=== PATIENT | male | born 1935 | race Caucasian/White ===

== ENCOUNTER 2018-04-04 18:41 | Emergency (ER) | payer OTHER ==
[~2018-04-04] VITALS: Ht 185.4 cm; Wt 97.2 kg
[2018-04-04] MEDS ORDERED: KEFLEX500 MG PO (19:50)
[2018-04-04 20:16] VITALS: BP 139/77
== END 2018-04-04 20:10 | disposition home or self-care (01) ==
LOC: TRA 18:41
DX: S91.311A Laceration without foreign body, right foot, initial encounter (principal); W26.0XXA Contact with knife, initial encounter; Y93.G3 Activity, cooking and baking; Y92.000 Kitchen of unspecified non-institutional (private) residence as the place of occurrence of the external cause; Z23 Encounter for immunization; E11.9 Type 2 diabetes mellitus without complications; Z79.82 Long term (current) use of aspirin; Z87.891 Personal history of nicotine dependence; Z85.038 Personal history of other malignant neoplasm of large intestine; Z90.49 Acquired absence of other specified parts of digestive tract; Z91.030 Bee allergy status
CPT/HCPCS: 99281; 99284; J0690

== ENCOUNTER 2018-04-20 14:10 | Inpatient (IN) | payer OTHER ==
[~2018-04-20] VITALS: Ht 185.4 cm; Wt 92.9 kg
[~2018-04-20 14:10] MED LIST: KEFLEX500 MG PO
[2018-04-20 14:52] LABS: HEMATOCRIT 35.4 % (38.0-50.0); HEMOGLOBIN 11.5 G/DL (12.5-16.6); MCH 32.4 PG (29.0-34.0); MCHC 32.5 G/DL (30.0-36.0); MCV 99.7 FL (86-99); NRBC (%) 0.1 /100 WBC (0-0); PLATELET COUNT 237 K/uL (156-360); RBC DIS.WIDTH-CV 14.8 % (11.8-14.6); RED BLOOD COUNT 3.55 M/uL (4.00-5.50); WHITE BLOOD COUNT 22.6 K/uL (4.1-10.2)
[2018-04-20 14:54] LABS: ALBUMIN 3.9 g/dL (3.2-4.8); CHLORIDE 105 mEq/L (99-109); POTASSIUM 5.5 mEq/L (3.7-5.4); SODIUM 135 mEq/L (136-147)
[2018-04-20 14:55] LABS: INTER. NORMALIZED RATIO 1.1
[2018-04-20 14:56] LABS: GLUCOSE 338 mg/dL (70-99)
[2018-04-20 14:57] LABS: TOTAL PROTEIN 7.8 g/dL (6.4-8.3)
[2018-04-20 14:58] LABS: PTT 21.9 SEC (25-37); TOTAL BILIRUBIN 0.6 mg/dL (0.0-1.0)
[2018-04-20 15:00] LABS: ALKALINE PHOSPHATASE 74 IU/L (3-129); CREATININE 2.3 mg/dL (0.6-1.3); GFR ESTIMATE (CALCULATED) 29 mL/min/ (58.99-99999)
[2018-04-20 15:01] LABS: UREA NITROGEN (BUN) 42 mg/dL (9-23)
[2018-04-20 15:02] LABS: AST (GOT) 45 IU/L (2-34)
[2018-04-20 15:03] LABS: ALT (GPT) 43 IU/L (3-49); LIPASE 46 U/L (1.0-51.0)
[2018-04-20 15:06] LABS: TROP-I INTERPRETATION NEGATIVE; TROPONIN-I < 0.01 ng/mL (0.0-0.30)
[2018-04-20 17:01] VITALS: BP 131/63
[2018-04-20 17:16] VITALS: BP 145/63
[2018-04-20 18:00] LABS: COMMENTS - BLOOD GASES C+; DEVICE VENT; FI02 70 %; MECHANICAL RATE 18 resp/min; MODE AC; SITE ALINE; TOTAL RESP RATE 18 resp/min
[2018-04-20 18:01] LABS: BASE EXCESS -6.3 mEq/L (-3 to +3); BICARBONATE 20.6 mEq/L (22-26); CARBOXY HGB 1.2 % (0-5); METHEMOGLOBIN 1.4 % (0-1.5); O2 SATURATION (CALCULATED) 95.4 % (95-99); PCO2 46 mm Hg (35-45); PEEP 5 CM/H20; PO2 105 mm Hg (80-100); TIDAL VOLUME 550 ML; pH 7.26 (7.35-7.45)
[2018-04-20 18:16] LABS: BASOPHIL (%) 0.2 % (0-1); EOSINOPHIL (%) 0.4 % (0-5); EOSINOPHIL COUNT 0.1 K/uL (0-0.3); HEMATOCRIT 32.7 % (38.0-50.0); HEMOGLOBIN 11.1 G/DL (12.5-16.6); IMMATURE GRANULOCYTE (%) 0.8 % (0.0-0.7); LYMPHOCYTE (%) 25.3 % (15-42); LYMPHOCYTE COUNT 4.2 K/uL (1.0-2.8); MCH 32.6 PG (29.0-34.0); MCHC 33.9 G/DL (30.0-36.0); MCV 96.2 FL (86-99); MONOCYTE (%) 9.1 % (3-12); MONOCYTE COUNT 1.5 K/uL (0-0.8); NEUTROPHIL (%) 64.2 % (45-76); NEUTROPHIL COUNT 10.5 K/uL (1.8-6.4); PLATELET COUNT 227 K/uL (156-360); RBC DIS.WIDTH-CV 14.6 % (11.8-14.6); WHITE BLOOD COUNT 16.4 K/uL (4.1-10.2)
[2018-04-20 18:28] LABS: CHLORIDE 107 mEq/L (99-109); MAGNESIUM 2.1 mg/dL (1.3-2.7); POTASSIUM 5.1 mEq/L (3.7-5.4); SODIUM 135 mEq/L (136-147)
[2018-04-20 18:30] LABS: GLUCOSE 370 mg/dL (70-99)
[2018-04-20 18:33] LABS: PHOSPHORUS 3.9 mg/dL (2.5-4.9)
[2018-04-20 18:34] LABS: CREATININE 2.1 mg/dL (0.6-1.3); GFR ESTIMATE (CALCULATED) 32 mL/min/ (58.99-99999); UREA NITROGEN (BUN) 44 mg/dL (9-23)
[2018-04-20 18:36] LABS: INTER. NORMALIZED RATIO 1.1
[2018-04-20 18:38] LABS: TROP-I INTERPRETATION INDETERMINATE; TROPONIN-I 0.33 ng/mL (0.0-0.30)
[2018-04-20 20:00] VITALS: BP 177/91
[2018-04-21] VITALS (9 sets, daily range): BP systolic 76–168; BP diastolic 42–104
[2018-04-21 00:08] LABS: CARBOXY HGB 1.4 % (0-5); METHEMOGLOBIN 1.1 % (0-1.5); PCO2 40 mm Hg (35-45); PO2 116 mm Hg (80-100); pH 7.32 (7.35-7.45)
[2018-04-21 00:09] LABS: BASE EXCESS -5.1 mEq/L (-3 to +3); BICARBONATE 20.6 mEq/L (22-26); COMMENTS - BLOOD GASES C+; DEVICE VENT; FI02 60 %; MECHANICAL RATE 22 resp/min; MODE ACVC; SITE A-LINE
[2018-04-21 00:10] LABS: PEEP 5 CM/H20; TIDAL VOLUME 550 ML; TOTAL RESP RATE 22 resp/min
[2018-04-21 00:40] LABS: BASOPHIL (%) 0.1 % (0-1); EOSINOPHIL (%) 0 % (0-5); HEMATOCRIT 31.9 % (38.0-50.0); HEMOGLOBIN 10.9 G/DL (12.5-16.6); IMMATURE GRANULOCYTE (%) 0.4 % (0.0-0.7); LYMPHOCYTE COUNT 2.7 K/uL (1.0-2.8); MCH 32.5 PG (29.0-34.0); MCHC 34.2 G/DL (30.0-36.0); MCV 95.2 FL (86-99); MONOCYTE (%) 4.9 % (3-12); MONOCYTE COUNT 0.7 K/uL (0-0.8); NEUTROPHIL (%) 75.6 % (45-76); NEUTROPHIL COUNT 10.7 K/uL (1.8-6.4); PLATELET COUNT 201 K/uL (156-360); RBC DIS.WIDTH-CV 14.4 % (11.8-14.6); RBC DIS.WIDTH-SD 50.5 % (39-53); RED BLOOD COUNT 3.35 M/uL (4.00-5.50); WHITE BLOOD COUNT 14.2 K/uL (4.1-10.2)
[2018-04-21 00:45] LABS: INTER. NORMALIZED RATIO 1.1
[2018-04-21 00:49] LABS: CHLORIDE 106 mEq/L (99-109); SODIUM 133 mEq/L (136-147)
[2018-04-21 00:50] LABS: MAGNESIUM 2.2 mg/dL (1.3-2.7); POTASSIUM 6.6 mEq/L (3.7-5.4)
[2018-04-21 00:51] LABS: GLUCOSE 466 mg/dL (70-99)
[2018-04-21 00:54] LABS: PHOSPHORUS 3.8 mg/dL (2.5-4.9)
[2018-04-21 00:55] LABS: CREATININE 2.2 mg/dL (0.6-1.3); GFR ESTIMATE (CALCULATED) 31 mL/min/ (58.99-99999)
[2018-04-21 00:56] LABS: UREA NITROGEN (BUN) 50 mg/dL (9-23)
[2018-04-21 01:05] LABS: TROP-I INTERPRETATION POSITIVE
[2018-04-21 01:06] LABS: TROPONIN-I 1.76 ng/mL (0.0-0.30)
[2018-04-21 04:20] LABS: BASOPHIL (%) 0.1 % (0-1); EOSINOPHIL (%) 0.1 % (0-5); HEMATOCRIT 29.8 % (38.0-50.0); HEMOGLOBIN 10.2 G/DL (12.5-16.6); IMMATURE GRANULOCYTE (%) 0.6 % (0.0-0.7); LYMPHOCYTE (%) 22.8 % (15-42); MCH 32.3 PG (29.0-34.0); MCHC 34.2 G/DL (30.0-36.0); MCV 94.3 FL (86-99); MONOCYTE (%) 7.5 % (3-12); NEUTROPHIL (%) 68.9 % (45-76); NEUTROPHIL COUNT 9.1 K/uL (1.8-6.4); PLATELET COUNT 191 K/uL (156-360); RBC DIS.WIDTH-CV 14.6 % (11.8-14.6); RBC DIS.WIDTH-SD 50.2 % (39-53); RED BLOOD COUNT 3.16 M/uL (4.00-5.50); WHITE BLOOD COUNT 13.1 K/uL (4.1-10.2)
[2018-04-21 04:28] LABS: INTER. NORMALIZED RATIO 1.1
[2018-04-21 04:33] LABS: CHLORIDE 109 mEq/L (99-109); MAGNESIUM 2.2 mg/dL (1.3-2.7); POTASSIUM 4.8 mEq/L (3.7-5.4); SODIUM 139 mEq/L (136-147)
[2018-04-21 04:35] LABS: GLUCOSE 174 mg/dL (70-99)
[2018-04-21 04:39] LABS: CREATININE 1.9 mg/dL (0.6-1.3); GFR ESTIMATE (CALCULATED) 36 mL/min/ (58.99-99999); UREA NITROGEN (BUN) 50 mg/dL (9-23)
[2018-04-21 04:48] LABS: TROP-I INTERPRETATION POSITIVE
[2018-04-21 04:52] LABS: TROPONIN-I 5.46 ng/mL (0.0-0.30)
[2018-04-21 05:36] LABS: BICARBONATE 23.9 mEq/L (22-26); CARBOXY HGB 1.7 % (0-5); METHEMOGLOBIN 1.1 % (0-1.5); O2 SATURATION (CALCULATED) 97.2 % (95-99); PCO2 52 mm Hg (35-45); PO2 84 mm Hg (80-100); pH 7.27 (7.35-7.45)
[2018-04-21 05:37] LABS: BASE EXCESS -3.4 mEq/L (-3 to +3); DEVICE VENT; FI02 60 %; MECHANICAL RATE 22 resp/min; MODE ACVC; PEEP 5 CM/H20; SITE A-LINE; TIDAL VOLUME 550 ML; TOTAL RESP RATE 22 resp/min
[2018-04-21 08:24] LABS: CHLORIDE 109 MEQ/L (99-109); POTASSIUM 4.5 MEQ/L (3.7-5.4); SODIUM 141 MEQ/L (136-147)
[2018-04-21 08:30] LABS: CREATININE 1.7 MG/DL (0.6-1.3); GFR ESTIMATE (CALCULATED) 41 mL/min/ (58.99-99999); PHOSPHORUS 4.2 mg/dL (2.5-4.9); UREA NITROGEN (BUN) 46 mg/dL (9-23)
[2018-04-21 08:31] LABS: GLUCOSE 74 mg/dL (70-99)
[2018-04-21 09:32] LABS: ABS NEUTROPHIL COUNT 8.7; ANISOCYTOSIS 1+; BAND NEUTROPHILS 7.6 % (0-8.0); BASOPHILS 0.5 %; EOSINOPHIL ABS CT 0.4; EOSINOPHILS 1.8 % (0-5.0); MACROCYTES 1+; METAMYELOCYTES 0.9 %; MONOCYTES 4.9 % (0-9.0); OTHER 0.4; PLAT.SUFFICIENCY ADEQUATE; SEG.NEUTROPHILS 30.8 % (46.0-76.0); SMUDGE CELLS 4.5
[2018-04-21 10:28] LABS: HEMOGLOBIN A1c (GLYCOHEMOGLOB) 6.2 % (Below 5.7)
[2018-04-21 12:12] LABS: BASOPHIL (%) 0.2 % (0-1); EOSINOPHIL (%) 0.1 % (0-5); HEMATOCRIT 32.7 % (38.0-50.0); HEMOGLOBIN 11.3 G/DL (12.5-16.6); IMMATURE GRANULOCYTE (%) 0.6 % (0.0-0.7); LYMPHOCYTE (%) 27.4 % (15-42); LYMPHOCYTE COUNT 4.9 K/uL (1.0-2.8); MCH 32.6 PG (29.0-34.0); MCHC 34.6 G/DL (30.0-36.0); MCV 94.2 FL (86-99); MONOCYTE (%) 8.4 % (3-12); MONOCYTE COUNT 1.5 K/uL (0-0.8); NEUTROPHIL (%) 63.3 % (45-76); NEUTROPHIL COUNT 11.4 K/uL (1.8-6.4); PLATELET COUNT 220 K/uL (156-360); RBC DIS.WIDTH-CV 14.8 % (11.8-14.6); RBC DIS.WIDTH-SD 50.8 % (39-53); RED BLOOD COUNT 3.47 M/uL (4.00-5.50)
[2018-04-21 12:18] LABS: INTER. NORMALIZED RATIO 1.2
[2018-04-21 12:23] LABS: COMMENTS - BLOOD GASES NAC+; DEVICE 840; FI02 60 %; MECHANICAL RATE 25 resp/min; MODE AC; PCO2 38 mm Hg (35-45); PEEP 5 CM/H20; PO2 119 mm Hg (80-100); SITE ALINE; TIDAL VOLUME 550 ML; TOTAL RESP RATE 25 resp/min; pH 7.37 (7.35-7.45)
[2018-04-21 12:23] LABS: CHLORIDE 110 mEq/L (99-109); POTASSIUM 4.8 mEq/L (3.7-5.4); SODIUM 143 mEq/L (136-147)
[2018-04-21 12:24] LABS: BICARBONATE 22 mEq/L (22-26); CARBOXY HGB 1.4 % (0-5); METHEMOGLOBIN 1 % (0-1.5)
[2018-04-21 12:28] LABS: PHOSPHORUS 3.2 mg/dL (2.5-4.9)
[2018-04-21 12:29] LABS: CREATININE 1.7 mg/dL (0.6-1.3); GFR ESTIMATE (CALCULATED) 41 mL/min/ (58.99-99999)
[2018-04-21 12:30] LABS: UREA NITROGEN (BUN) 45 mg/dL (9-23)
[2018-04-21 12:34] LABS: TROP-I INTERPRETATION POSITIVE
[2018-04-21 12:54] LABS: GLUCOSE 183 mg/dL (70-99)
[2018-04-21 12:59] LABS: TROPONIN-I 7.21 ng/mL (0.0-0.30)
[2018-04-21 16:12] LABS: CHLORIDE 111 mEq/L (99-109); POTASSIUM 4.8 mEq/L (3.7-5.4); SODIUM 141 mEq/L (136-147)
[2018-04-21 16:14] LABS: GLUCOSE 171 mg/dL (70-99)
[2018-04-21 16:17] LABS: PHOSPHORUS 3.1 mg/dL (2.5-4.9)
[2018-04-21 16:18] LABS: CREATININE 1.6 mg/dL (0.6-1.3); GFR ESTIMATE (CALCULATED) 44 mL/min/ (58.99-99999)
[2018-04-21 16:19] LABS: UREA NITROGEN (BUN) 42 mg/dL (9-23)
[2018-04-21 18:15] LABS: COMMENTS - BLOOD GASES C+; DEVICE VENT; FI02 60 %; MECHANICAL RATE 25 resp/min; MODE AC; PEEP 5 CM/H20; SITE ALINE; TIDAL VOLUME 550 ML; TOTAL RESP RATE 25 resp/min
[2018-04-21 18:16] LABS: BICARBONATE 20.2 mEq/L (22-26); CARBOXY HGB 1.4 % (0-5); METHEMOGLOBIN 1.1 % (0-1.5); PCO2 29 mm Hg (35-45); PO2 203 mm Hg (80-100); pH 7.45 (7.35-7.45)
[2018-04-21 18:18] LABS: BASOPHIL (%) 0.2 % (0-1); EOSINOPHIL (%) 0.1 % (0-5); HEMATOCRIT 29.7 % (38.0-50.0); HEMOGLOBIN 10.2 G/DL (12.5-16.6); IMMATURE GRANULOCYTE (%) 0.6 % (0.0-0.7); LYMPHOCYTE (%) 30.9 % (15-42); MCH 32.5 PG (29.0-34.0); MCHC 34.3 G/DL (30.0-36.0); MCV 94.6 FL (86-99); MONOCYTE (%) 7.8 % (3-12); MONOCYTE COUNT 1.5 K/uL (0-0.8); NEUTROPHIL (%) 60.4 % (45-76); NEUTROPHIL COUNT 11.6 K/uL (1.8-6.4); PLATELET COUNT 210 K/uL (156-360); RBC DIS.WIDTH-CV 14.9 % (11.8-14.6); RBC DIS.WIDTH-SD 51.3 % (39-53); RED BLOOD COUNT 3.14 M/uL (4.00-5.50); WHITE BLOOD COUNT 19.2 K/uL (4.1-10.2)
[2018-04-21 18:26] LABS: INTER. NORMALIZED RATIO 1.2
[2018-04-21 18:28] LABS: CHLORIDE 111 mEq/L (99-109); POTASSIUM 4.5 mEq/L (3.7-5.4); SODIUM 141 mEq/L (136-147)
[2018-04-21 18:29] LABS: MAGNESIUM 1.8 mg/dL (1.3-2.7)
[2018-04-21 18:30] LABS: GLUCOSE 183 mg/dL (70-99)
[2018-04-21 18:33] LABS: CHLORIDE 113 mEq/L (99-109); PHOSPHORUS 2.6 mg/dL (2.5-4.9); POTASSIUM 4.5 mEq/L (3.7-5.4); SODIUM 141 mEq/L (136-147)
[2018-04-21 18:34] LABS: CREATININE 1.6 mg/dL (0.6-1.3); GFR ESTIMATE (CALCULATED) 44 mL/min/ (58.99-99999); GLUCOSE 185 mg/dL (70-99)
[2018-04-21 18:35] LABS: UREA NITROGEN (BUN) 41 mg/dL (9-23)
[2018-04-21 18:38] LABS: CREATININE 1.6 mg/dL (0.6-1.3); GFR ESTIMATE (CALCULATED) 44 mL/min/ (58.99-99999); PHOSPHORUS 2.6 mg/dL (2.5-4.9)
[2018-04-21 18:39] LABS: UREA NITROGEN (BUN) 41 mg/dL (9-23)
[2018-04-21 18:40] LABS: TROP-I INTERPRETATION POSITIVE
[2018-04-21 18:42] LABS: TROPONIN-I 6.94 ng/mL (0.0-0.30)
[2018-04-22] VITALS (8 sets, daily range): BP systolic 95–167; BP diastolic 51–91
[2018-04-22 00:32] LABS: BASOPHIL (%) 0.2 % (0-1); EOSINOPHIL (%) 0.1 % (0-5); HEMATOCRIT 30.1 % (38.0-50.0); HEMOGLOBIN 10.2 G/DL (12.5-16.6); IMMATURE GRANULOCYTE (%) 0.5 % (0.0-0.7); LYMPHOCYTE (%) 38.1 % (15-42); LYMPHOCYTE COUNT 6.4 K/uL (1.0-2.8); MCH 32.9 PG (29.0-34.0); MCHC 33.9 G/DL (30.0-36.0); MCV 97.1 FL (86-99); MONOCYTE (%) 8.5 % (3-12); MONOCYTE COUNT 1.4 K/uL (0-0.8); NEUTROPHIL (%) 52.6 % (45-76); NEUTROPHIL COUNT 8.8 K/uL (1.8-6.4); PLATELET COUNT 199 K/uL (156-360); RBC DIS.WIDTH-SD 52.9 % (39-53); WHITE BLOOD COUNT 16.8 K/uL (4.1-10.2)
[2018-04-22 00:37] LABS: INTER. NORMALIZED RATIO 1.3
[2018-04-22 00:41] LABS: CHLORIDE 112 mEq/L (99-109); MAGNESIUM 1.8 mg/dL (1.3-2.7); POTASSIUM 4.5 mEq/L (3.7-5.4); SODIUM 141 mEq/L (136-147)
[2018-04-22 00:43] LABS: GLUCOSE 209 mg/dL (70-99)
[2018-04-22 00:46] LABS: PHOSPHORUS 3.1 mg/dL (2.5-4.9)
[2018-04-22 00:47] LABS: CREATININE 1.8 mg/dL (0.6-1.3); GFR ESTIMATE (CALCULATED) 39 mL/min/ (58.99-99999)
[2018-04-22 00:48] LABS: UREA NITROGEN (BUN) 39 mg/dL (9-23)
[2018-04-22 00:53] LABS: TROP-I INTERPRETATION POSITIVE
[2018-04-22 00:57] LABS: TROPONIN-I 5.46 ng/mL (0.0-0.30)
[2018-04-22 05:44] LABS: BASOPHIL (%) 0.3 % (0-1); BASOPHIL COUNT 0.1 K/uL (0-0.1); EOSINOPHIL (%) 0.1 % (0-5); HEMATOCRIT 28.5 % (38.0-50.0); HEMOGLOBIN 9.5 G/DL (12.5-16.6); IMMATURE GRANULOCYTE (%) 0.3 % (0.0-0.7); LYMPHOCYTE (%) 41.5 % (15-42); LYMPHOCYTE COUNT 6.5 K/uL (1.0-2.8); MCH 31.9 PG (29.0-34.0); MCHC 33.3 G/DL (30.0-36.0); MCV 95.6 FL (86-99); MONOCYTE (%) 7.7 % (3-12); MONOCYTE COUNT 1.2 K/uL (0-0.8); NEUTROPHIL (%) 50.1 % (45-76); NEUTROPHIL COUNT 7.9 K/uL (1.8-6.4); PLATELET COUNT 211 K/uL (156-360); RBC DIS.WIDTH-CV 15.1 % (11.8-14.6); RED BLOOD COUNT 2.98 M/uL (4.00-5.50); WHITE BLOOD COUNT 15.8 K/uL (4.1-10.2)
[2018-04-22 06:26] LABS: INTER. NORMALIZED RATIO 1.3
[2018-04-22 06:51] LABS: CHLORIDE 111 MEQ/L (99-109); CREATININE 1.6 MG/DL (0.6-1.3); GFR ESTIMATE (CALCULATED) 44 mL/min/ (58.99-99999); GLUCOSE 213 mg/dL (70-99); MAGNESIUM 1.8 mg/dl (1.3-2.7); PHOSPHORUS 3.4 mg/dL (2.5-4.9); POTASSIUM 4.3 MEQ/L (3.7-5.4); SODIUM 142 MEQ/L (136-147); UREA NITROGEN (BUN) 35 mg/dL (9-23)
[2018-04-22 07:01] LABS: TROP-I INTERPRETATION POSITIVE
[2018-04-22 12:34] LABS: INTER. NORMALIZED RATIO 1.3
[2018-04-22 12:45] LABS: BASOPHIL (%) 0.4 % (0-1); BASOPHIL COUNT 0.1 K/uL (0-0.1); EOSINOPHIL (%) 0.2 % (0-5); HEMATOCRIT 30.7 % (38.0-50.0); HEMOGLOBIN 9.9 G/DL (12.5-16.6); IMMATURE GRANULOCYTE (%) 0.6 % (0.0-0.7); LYMPHOCYTE COUNT 6.2 K/uL (1.0-2.8); MCH 31.9 PG (29.0-34.0); MCHC 32.2 G/DL (30.0-36.0); MONOCYTE COUNT 1.5 K/uL (0-0.8); NEUTROPHIL (%) 51.8 % (45-76); NEUTROPHIL COUNT 8.4 K/uL (1.8-6.4); PLATELET COUNT 203 K/uL (156-360); RBC DIS.WIDTH-CV 14.9 % (11.8-14.6); RBC DIS.WIDTH-SD 54.3 % (39-53); WHITE BLOOD COUNT 16.3 K/uL (4.1-10.2)
[2018-04-22 12:53] LABS: TROP-I INTERPRETATION POSITIVE; TROPONIN-I 4.36 ng/mL (0.0-0.30)
[2018-04-22 12:57] LABS: CHLORIDE 110 MEQ/L (99-109); CREATININE 1.8 MG/DL (0.6-1.3); GFR ESTIMATE (CALCULATED) 39 mL/min/ (58.99-99999); GLUCOSE 189 mg/dL (70-99); MAGNESIUM 1.8 mg/dl (1.3-2.7); PHOSPHORUS 2.8 mg/dL (2.5-4.9); POTASSIUM 4.4 MEQ/L (3.7-5.4); SODIUM 144 MEQ/L (136-147); UREA NITROGEN (BUN) 32 mg/dL (9-23)
[2018-04-23 03:00] VITALS: BP 109/58
[2018-04-23 08:00] VITALS: BP 96/59
[2018-04-23 12:00] VITALS: BP 78/46
[2018-04-23 16:00] VITALS: BP 83/49
[2018-04-24 06:16] VITALS: BP 000/00
== END 2018-04-24 08:44 ==
LOC: EME 14:10 → ENRESERV 14:35 → CATH 15:04 → EME 15:04 → ENRESERV 15:09 → 4WEST 17:01 → ENRESERV 04-21 10:49 → 4WEST 04-21 10:49 → ENRESERV 04-23 → 4WEST 04-23 18:48 → ENRESERV 04-23 18:51 → 5EAST 04-23 20:22
PROVIDERS: Emergency Medicine; Internal Medicine; Specialist; Surgery
PROC: 5A1945Z Respiratory Ventilation, 24-96 Consecutive Hours (ICD-10-PCS; principal; 2018-04-20)
PROC: B2111ZZ Fluoroscopy of Multiple Coronary Arteries using Low Osmolar Contrast (ICD-10-PCS; 2018-04-20)
PROC: 4A023N7 Measurement of Cardiac Sampling and Pressure, Left Heart, Percutaneous Approach (ICD-10-PCS; 2018-04-20)
PROC: 4A133B1 Monitoring of Arterial Pressure, Peripheral, Percutaneous Approach (ICD-10-PCS; 2018-04-20)
PROC: 04HY32Z Insertion of Monitoring Device into Lower Artery, Percutaneous Approach (ICD-10-PCS; 2018-04-20)
DX: I21.3 ST elevation (STEMI) myocardial infarction of unspecified site (principal); G93.1 Anoxic brain damage, not elsewhere classified; I46.2 Cardiac arrest due to underlying cardiac condition; I49.01 Ventricular fibrillation; I95.9 Hypotension, unspecified; R09.02 Hypoxemia; I10 Essential (primary) hypertension; E11.40 Type 2 diabetes mellitus with diabetic neuropathy, unspecified; I25.10 Atherosclerotic heart disease of native coronary artery without angina pectoris; I45.10 Unspecified right bundle-branch block; R56.9 Unspecified convulsions; Z51.5 Encounter for palliative care; Z66 Do not resuscitate; Z85.038 Personal history of other malignant neoplasm of large intestine; Z87.891 Personal history of nicotine dependence; Z79.84 Long term (current) use of oral hypoglycemic drugs
CPT/HCPCS: 36600; 70450; 71045; 80048; 80048 91; 80053; 82330; 82948; 83036; 83605; 83690; 83735; 83880; 84100; 84484; 84999; 85025; 85025 91; 85610; 85730; 86850; 86860; 86870; 86880; 86900; 86901; 86905; 86920; 87070; 87205; 87641; 93005; 93306; 94002; 94003; 95819; 99281; 99285; C1751; C1769; C1887; J0295; J1644; J1815; J1953; J2060; J2250; J2270; J2704; J3010; J7030; J7050; S0028